=== PATIENT | male | born 1995 | race Caucasian/White ===

== ENCOUNTER 2018-08-19 03:09 | Emergency (ER) | payer MEDICAID ==
[~2018-08-19] VITALS: Ht 180.3 cm; Wt 77.1 kg
[2018-08-19 03:10] VITALS: BP 123/78
[2018-08-19 03:50] VITALS: BP 123/78
== END 2018-08-19 03:50 ==
LOC: MED 03:09
DX: Z02.89 Encounter for other administrative examinations (principal); K21.9 Gastro-esophageal reflux disease without esophagitis
CPT/HCPCS: 99283